=== PATIENT | female | born 1970 | race Asian ===

== ENCOUNTER 2019-02-09 07:05 | Day surgery (SDC) | payer OTHER ==
[~2019-02-09] VITALS: Ht 177.8 cm; Wt 180.0 kg
[~2019-02-09 07:05] MED LIST: SODIUM CHLORIDE 0.9% 1,000 ML IV ONE
[2019-02-09 07:55] LABS: GLUCOMETER DEV NAME(LOC) SDS.; GLUCOSE,POINT OF CARE 126 MG/DL (70-110)
[2019-02-09] MEDS: SODIUM CHLORIDE 0.9% 1,000 ML IV ONE (07:56)
[2019-02-09] MEDS ORDERED: PROPOFOL 1% 20 ML VIAL IVP ONE (12:00)
[2019-02-09] MEDS ORDERED: LIDOCAINE/PF 2% 5 ML VIAL INJ ONE (12:00)
== END 2019-02-09 10:20 | disposition home or self-care (01) ==
LOC: SURGERY 07:05
PROVIDERS: ATTEND Internal Medicine Gastroenterology
DX: Z12.11 Encounter for screening for malignant neoplasm of colon (principal); K64.1 Second degree hemorrhoids; I48.91 Unspecified atrial fibrillation; I10 Essential (primary) hypertension; E66.01 Morbid (severe) obesity due to excess calories; Z79.899 Other long term (current) drug therapy; Z79.84 Long term (current) use of oral hypoglycemic drugs; Z98.890 Other specified postprocedural states; Z72.89 Other problems related to lifestyle; Z87.01 Personal history of pneumonia (recurrent)
CPT/HCPCS: 36415; 45378; 82962; 84702; J2704; J3490; J7030